=== PATIENT | female | born 1945 | race Caucasian/White ===

== ENCOUNTER 2022-04-20 12:08 | Outpatient (CLI) | payer MEDICARE, BC ==
[2022-04-20] VITALS (11 sets, daily range): BP systolic 97–206; BP diastolic 16–155
== END 2022-04-20 23:59 | disposition home or self-care (01) ==
LOC: CARD DIAG 12:08
PROVIDERS: ATTEND Internal Medicine Cardiovascular Disease
DX: R55 Syncope and collapse (principal)
CPT/HCPCS: 93660

== ENCOUNTER 2024-10-25 08:20 | Emergency (ER) | payer MEDICARE, BC ==
[~2024-10-25] VITALS: Ht 175.3 cm; Wt 52.6 kg
[~2024-10-25 08:20] MED LIST: AMLO5TAB16 PO; CELE-127 PO; FLEC100T PO; HYDR-3965 PO; LEVO175T2 PO; LORA-269 PO; TRAZ-256 PO
[2024-10-25 08:26] VITALS: TEMP 98.2
--- NOTE | 2024-10-25 08:41 | Physician Documentation ---
History of Present Illness ~ Chief Complaint: Rectal Bleeding Stated Complaint: GI BLEED Time Seen by MD: 08:25 HPI 79-year-old female who presents with reported rectal bleeding With the patient tells me that she had blood in her stool last week, was seen at [facility], had laboratory testing, imaging, and other treatments. She tells me they did not really do anything, there was not really a plan afterwards. Today, staff again noticed blood in her stool, and so they called 911. She came here to this hospital because the experience at [facility] was terrible. She tells me she did have a stomach ache earlier today, but currently denies any abdominal pain. No dizziness or new weakness. No vomiting blood. No rectal pain. No other acute concerns. She does have a colostomy, but states it is nonfunctional and she is waiting to get it reversed. Medication Reconciliation Allergies: Coded Allergies: Penicillins (Verified Allergy, Unknown, 04/09/14) HIVES Scheduled Amlodipine Besylate (Amlodipine Besylate), 1 TAB PO DAILY Celecoxib (Celecoxib), 1 CAP PO DAILY, (Reported) Flecainide Acetate (Flecainide Acetate), 1 TAB PO BID, (Reported) Levothyroxine* (Synthroid*), 1 TAB PO DAILY, (Reported) Lorazepam (Ativan), 1 TAB PO HS, (Reported) Trazodone HCl (Trazodone HCl), 1 TAB PO HS, (Reported) Scheduled PRN Hydrocodone Bit/Acetaminophen 5/325 MG ([place] 5/325 MG), 1 TAB PO Q8H PRN for moderate or severe pain, (Reported) Past Medical History Past Medical History: No Pertinent History Past Surgical History: orthopedic surgeries Patient History: FH: CVA (cerebrovascular accident) Maternal grandmother FH: heart disease Paternal grandfather FH: lung cancer MOTHER Alcohol Use: Occasionally Drug Use: none Lives with: Family Lives In: Home Occupation: retired Review of Systems Constitutional: Denies: fever Gastrointestinal: Reports: rectal bleeding; Denies: abdominal pain Physical Exam Vital Signs: Temperature: 98.2, Source: Oral, Heart Rate: 91, Respiratory Rate: 18, BP: 97/53, Pulse Oximetry: 95, Weight: 52.600 Physical Exam General: This is a pleasant elderly woman lying calmly in bed HEENT: Atraumatic, oropharynx appears moist Heart: Mild tachycardic, appears irregular, normal-appearing peripheral perfusion Lungs: Clear breath sounds bilateral, normal work of breathing, normal oxygen saturation on room air Abdomen: Soft, nondistended, nontender all quadrants, there is an ostomy bag in the left abdomen, with no stool in the bag Neuro: Alert and oriented Psychiatric: Calm and cooperative with exam Progress Results/Orders Results/Orders Orders - VANESSA TAYLOR MD Urinalysis, Cult If Indicated (10/25/24 08:33) Completed Orders - VANESSA TAYLOR MD Cbc/Diff (10/25/24 08:33) BMP (10/25/24 08:33) Lipase (10/25/24 08:33) CMP (10/25/24 08:33) Vital Signs 10/25/24 10/25/24 08:26 09:30 Temp 98.2 Pulse 91 87 Resp 18 17 B/P (MAP) 97/53 104/56 (72) Pulse Ox 95 93 Laboratory Tests Test 10/25/24 08:43 White Blood Count 18.2 H Red Blood Count 4.18 L Hemoglobin 11.6 L Hematocrit 35.8 Mean Corpuscular Volume 85.8 Mean Corpuscular Hemoglobin 27.9 Mean Corpuscular Hemoglobin Concent 32.5 L Red Cell Distribution Width 14.9 H Platelet Count 517 H Mean Platelet Volume 7.2 L Neutrophils (%) (Auto) 93.5 H Lymphocytes (%) (Auto) 2.3 L Monocytes (%) (Auto) 3.1 Eosinophils (%) (Auto) 1.0 Basophils (%) (Auto) 0.1 Neutrophils # (Auto) 17.0 H Lymphocytes # (Auto) 0.4 L Monocytes # (Auto) 0.6 Eosinophils # (Auto) 0.2 Basophils # (Auto) 0.0 CBC Comment Sodium Level 136 Potassium Level 4.9 Chloride Level 102 Carbon Dioxide Level 22.4 L Anion Gap 12 Blood Urea Nitrogen 37 H Creatinine 2.52 H Estimated GFR/1.73 m2 18 BUN/Creatinine Ratio 14.7 Glucose Level 106 H Calcium Level 8.6 Total Bilirubin 0.4 Aspartate Amino Transf (AST/SGOT) 11 Alanine Aminotransferase (ALT/SGPT) 14 Alkaline Phosphatase 184 H Total Protein 7.8 Albumin 2.7 L Globulin 5.1 H Albumin/Globulin Ratio 0.5 L Lipase 61 Chemistry Comments Medical Decision Making Additional info obtained from: old records Findings Outside records obtained from [facility]. The patient was recently admitted for blood in her stool. She had a complete workup including blood testing, a CT scan of her abdomen, GI consult, colonoscopy. This showed colitis, has a likely source of her bleeding. She was discharged with a plan to follow up in the surgery clinic for colostomy reversal. Diff Dx GI Bleed:Consideration: Include: Blood loss anemia, Diverticulosis, Gastritis, Inflammatory BD Assessment 79-year-old female who presents with reported rectal bleeding. She had similar last week and had a full workup at an outside hospital. She is otherwise asymptomatic including no abdominal pain or rectal pain. We will obtain basic labs and then wait for records from the outside hospital before proceeding with further workup, given her lack of other concerning symptoms. Records were obtained from the outside hospital, as above. Comparing her labs, they actually appear improved today, no worsening anemia or other dangerous findings. While here in the ED she is essentially asymptomatic. I do not feel that any further workup or testing is indicated. I explained that she may have some intermittent rectal bleeding related to her colitis. She was encouraged to follow up in the surgery clinic. She can return if she develops severe bleeding or signs of blood loss anemia. Departure Disposition: HOME / SELF CARE / HOMELESS Impression: Primary Impression: Rectal bleeding Condition: Stable Referrals: NO PRIMARY CARE PROVIDER (PCP) Education Educated: Patient Educated regarding: diagnosis, need for follow up Signature Scribe Signature: na Attestation: VANESSA Shaw MD Oct 25, 2024 08:41
[2024-10-25 08:51] LABS: BASOPHILS % (AUTO) 0.1 % (0-1); EOSINOPHILS # (AUTO) 0.2 X10'3 (0-0.9); HEMATOCRIT 35.8 % (35.0-45.0); HEMOGLOBIN 11.6 g/dl (12.0-16.0); LYMPHOCYTES # (AUTO) 0.4 X10'3 (1.1-4.8); LYMPHOCYTES % (AUTO) 2.3 % (21-51); MEAN CORPUSCULAR HEMOGLOBIN 27.9 PG (27.0-31.0); MEAN CORPUSCULAR HGB CONC 32.5 g/dL (33.0-36.5); MEAN CORPUSCULAR VOLUME 85.8 FL (78-98); MEAN PLATELET VOLUME 7.2 FL (7.4-10.4); MONOCYTES # (AUTO) 0.6 X10'3 (0-0.9); MONOCYTES % (AUTO) 3.1 % (2-12); NEUTROPHILS % (AUTO) 93.5 % (42-75); PLATELET COUNT 517 X10'3 (140-440); RED BLOOD COUNT 4.18 X10'6 (4.20-5.60); RED CELL DISTRIBUTION WIDTH 14.9 % (11.5-14.5); WHITE BLOOD COUNT 18.2 X10'3 (4.5-11.0)
[2024-10-25 09:05] LABS: ALANINE AMINOTRANSFERASE 14 U/L (12-78); ALBUMIN 2.7 G/DL (3.4-5.0); ALBUMIN/GLOBULIN RATIO 0.5 (1.1-1.5); ALKALINE PHOSPHATASE 184 IU/L (46-116); ANION GAP 12 (8-16); ASPARTATE AMINO TRANSFERASE 11 U/L (10-37); BILIRUBIN,TOTAL 0.4 MG/DL (0.1-1.0); BLOOD UREA NITROGEN 37 MG/DL (7-18); BUN/CREATININE RATIO 14.7 (10.0-20.0); CALCIUM 8.6 MG/DL (8.5-10.1); CHLORIDE 102 MMOL/L (99-107); CREATININE 2.52 MG/DL (0.40-0.90); GLUCOSE 106 MG/DL (70-104); LIPASE 61 U/L (16-77); POTASSIUM 4.9 MMOL/L (3.5-5.1); SODIUM 136 MMOL/L (135-145); TOTAL CARBON DIOXIDE 22.4 MMOL/L (24-32); TOTAL PROTEIN 7.8 G/DL (6.4-8.2); eCRCL 15 ML/MIN; eGFR 18 ML/MIN
[2024-10-25 12:35] VITALS: BP 101/65; PULSE 87; RESP 15; O2SAT 99
== END 2024-10-25 12:31 | disposition home or self-care (01) ==
LOC: ER 08:20
DX: K62.5 Hemorrhage of anus and rectum (principal); Z88.0 Allergy status to penicillin
CPT/HCPCS: 36415; 80053; 83690; 85025; 99284

== ENCOUNTER 2024-10-31 10:04 | Emergency (ER) | payer MEDICARE, BC ==
[~2024-10-31] VITALS: Ht 175.3 cm; Wt 116.0 kg
[2024-10-31 10:06] VITALS: TEMP 97.9
[2024-10-31 11:10] LABS: BASOPHILS % (AUTO) 0.7 % (0-1); EOSINOPHILS # (AUTO) 0.3 X10'3 (0-0.9); EOSINOPHILS % (AUTO) 5.3 % (0-6); HEMATOCRIT 32.8 % (35.0-45.0); HEMOGLOBIN 10.9 g/dl (12.0-16.0); LYMPHOCYTES # (AUTO) 0.6 X10'3 (1.1-4.8); LYMPHOCYTES % (AUTO) 10.7 % (21-51); MEAN CORPUSCULAR HEMOGLOBIN 28.3 PG (27.0-31.0); MEAN CORPUSCULAR HGB CONC 33.2 g/dL (33.0-36.5); MEAN CORPUSCULAR VOLUME 85.3 FL (78-98); MONOCYTES # (AUTO) 0.3 X10'3 (0-0.9); MONOCYTES % (AUTO) 5.9 % (2-12); NEUTROPHILS # (AUTO) 4.5 X10'3 (1.8-7.7); NEUTROPHILS % (AUTO) 77.4 % (42-75); PLATELET COUNT 543 X10'3 (140-440); RED BLOOD COUNT 3.85 X10'6 (4.20-5.60); RED CELL DISTRIBUTION WIDTH 14.5 % (11.5-14.5); WHITE BLOOD COUNT 5.8 X10'3 (4.5-11.0)
--- NOTE | 2024-10-31 11:14 | RADIOLOGY REPORT ---
Date: 10/31/2024 10:50 AM Examination: DI ABDOMEN,SINGLE VIEW(KUB) History: Constipation Comparison: None TECHNIQUE: Frontal views of the abdomen was obtained. FINDINGS: Bowel gas pattern is unremarkable. Large stool burden. The lung bases are unremarkable. No acute osseous abnormality identified. IMPRESSION: Nonobstructive bowel gas pattern. Large stool burden.
--- NOTE | 2024-10-31 11:16 | Physician Documentation ---
History of Present Illness ~ Chief Complaint: Constipation Stated Complaint: CONSTIPATION Time Seen by MD: 10:23 Mode of Arrival: Ambulatory [facility] 79-year-old female patient who is ambulatory with a history of diversion colostomy done two years ago for decubitus ulcer and history of knee surgeries came to the emergency room because of constipation for about 12 days. She has slight nausea but no vomiting. Her appetite is low but she is eating as usual. At the [facility] they have tried MiraLax. Patient does not endorse abdominal pain, chest pain, fever or chills and shortness of breath. Medication Reconciliation Allergies: Coded Allergies: Penicillins (Verified Allergy, Unknown, 04/09/14) HIVES Scheduled Amlodipine Besylate (Amlodipine Besylate), 1 TAB PO DAILY Celecoxib (Celecoxib), 1 CAP PO DAILY, (Reported) Flecainide Acetate (Flecainide Acetate), 1 TAB PO BID, (Reported) Levothyroxine* (Synthroid*), 1 TAB PO DAILY, (Reported) Lorazepam (Ativan), 1 TAB PO HS, (Reported) Trazodone HCl (Trazodone HCl), 1 TAB PO HS, (Reported) Scheduled PRN Hydrocodone Bit/Acetaminophen 5/325 MG ([place] 5/325 MG), 1 TAB PO Q8H PRN for moderate or severe pain, (Reported) Past Medical History Past Medical History: No Pertinent History Past Surgical History: orthopedic surgeries Patient History: FH: CVA (cerebrovascular accident) Maternal grandmother FH: heart disease Paternal grandfather FH: lung cancer MOTHER Alcohol Use: Occasionally Drug Use: none Lives with: Family Lives In: Home Occupation: retired Review of Systems ROS As stated above in the HPI, otherwise all systems are reviewed and negative. Physical Exam Vital Signs: Temperature: 97.9, Source: Temporal, Heart Rate: 76, Respiratory Rate: 16, BP: 131/84, Pulse Oximetry: 97, Weight: 116.000 Oxygen Flow Rate: 0 Progress Results/Orders Results/Orders Orders - JAUN DOSHI MD Abdomen,Single View(Kub) (10/31/24 10:23) Completed Orders - JAUN DOSHI MD Cbc/Diff (10/31/24 10:23) BMP (10/31/24 10:23) TSH (10/31/24 10:23) Abdomen,Single View(Kub) (10/31/24 10:23) Vital Signs 10/31/24 10/31/24 10/31/24 10/31/24 10:06 10:15 10:22 12:59 Temp 97.9 Pulse 98 76 78 Resp 18 16 16 B/P (MAP) 100/49 131/84 (100) 104/59 Pulse Ox 95 97 98 O2 Flow Rate 0 Laboratory Tests Test 10/31/24 10:45 White Blood Count 5.8 Red Blood Count 3.85 L Hemoglobin 10.9 L Hematocrit 32.8 L Mean Corpuscular Volume 85.3 Mean Corpuscular Hemoglobin 28.3 Mean Corpuscular Hemoglobin Concent 33.2 Red Cell Distribution Width 14.5 Platelet Count 543 H Mean Platelet Volume 7.0 L Neutrophils (%) (Auto) 77.4 H Lymphocytes (%) (Auto) 10.7 L Monocytes (%) (Auto) 5.9 Eosinophils (%) (Auto) 5.3 Basophils (%) (Auto) 0.7 Neutrophils # (Auto) 4.5 Lymphocytes # (Auto) 0.6 L Monocytes # (Auto) 0.3 Eosinophils # (Auto) 0.3 Basophils # (Auto) 0.0 CBC Comment Sodium Level 132 L Potassium Level 4.4 Chloride Level 101 Carbon Dioxide Level 23.4 L Anion Gap 8 Blood Urea Nitrogen 34 H Creatinine 2.26 H Estimated GFR/1.73 m2 21 BUN/Creatinine Ratio 15.0 Glucose Level 80 Calcium Level 8.7 Albumin 2.6 L Thyroid Stimulating Hormone (TSH) 4.92 H Chemistry Comments Medical Decision Making Findings During the physical examination, the findings suggestive of acute life- threatening condition such as JVD, tracheal deviation, acidotic breathing, noisy stridorous breath sounds, pulses paradoxus, muffled heart sounds, unequal breath sounds, abdominal rigidity and rebound tenderness, focal neurological deficits, cool clammy skin, severe hypotension, severe tachycardia or bradycardia are absent. Patient is not in any acute cardiopulmonary distress. Her abdominal x-ray shows no signs of obstruction but considerable amount of stool load. CBC is within normal range as well as BMP (normal electrolytes and no hypokalemia) and her TSH is not low (4.92) I did look at the colostomy site and I could put two fingers into the orifice and there is not much stool there. I really do not know whether it is the mechanics of colostomy site causing constipation or not. I consulted Dr. Patterson and understandably it is not acute condition and it is elective surgery and Dr. Patterson will see the patient in the office so that he may be able to expedite the plan surgery to be done in December to now rather than in December. In the meantime the patient is to consume liquids base diet such as ensure and boost. DISCLAIMER Inadvertent spelling and grammatical errors,inadvertent forms examiner errors ,syntax errors, grammatical errors, and spelling errors are likely due to EMR/dictation software use and do not reflect on the overall quality of patient care. Note that the electronic time recorded on this note does not necessarily reflect the actual time of the patient encounter. Departure Disposition: 01 HOME / SELF CARE / HOMELESS Impression: Primary Impression: Constipation Condition: Stable Discharge Instructions: Constipation, Adult Additional Instructions: Thank you for coming to our Emergency Department today. While waiting for the colostomy reversal please stay on liquid based diet such as ensure plus and boost. Please ask your nurse or provider if you have questions about your care today and do not leave until all your questions have been answered. Please use any medications given as directed and follow-up with your doctor (or the doctor you were referred to) in the next 1-3 days. Your primary care doctor can help to coordinate outpatient specialty care and provide authorization for specialty referral as needed. If you do not have a primary care doctor you may follow up at a [facility]. You may also use motrin and tylenol as needed for fever and/or pain unless instructed otherwise by your provider or nurse. Indications for more urgent follow-up have been discussed, but you may return to the Emergency Department at ANY time for any worrisome or worsening symptoms. Referrals: NO PRIMARY CARE PROVIDER (PCP) ANNE PATTERSON MD Signature Scribe Signature: x Attestation: JANU Flowers MD Oct 31, 2024 11:16
[2024-10-31 11:29] LABS: ALBUMIN 2.6 G/DL (3.4-5.0); ANION GAP 8 (8-16); BLOOD UREA NITROGEN 34 MG/DL (7-18); CALCIUM 8.7 MG/DL (8.5-10.1); CHLORIDE 101 MMOL/L (99-107); CREATININE 2.26 MG/DL (0.40-0.90); GLUCOSE 80 MG/DL (70-104); POTASSIUM 4.4 MMOL/L (3.5-5.1); SODIUM 132 MMOL/L (135-145); THYROID STIMULATING HORMONE 4.92 ulU/ml (0.34-4.50); TOTAL CARBON DIOXIDE 23.4 MMOL/L (24-32); eCRCL 20 ML/MIN; eGFR 21 ML/MIN
[2024-10-31 12:59] VITALS: BP 104/59; PULSE 78; RESP 16; O2SAT 98
== END 2024-10-31 13:10 | disposition home or self-care (01) ==
LOC: ER 10:04
DX: K59.00 Constipation, unspecified (principal); Z88.0 Allergy status to penicillin
CPT/HCPCS: 36415; 74018; 80048; 84443; 85025; 99284; A4421

== ENCOUNTER 2024-11-02 22:33 | Emergency (ER) | payer MEDICARE, BC ==
[~2024-11-02] VITALS: Ht 175.3 cm; Wt 52.7 kg
--- NOTE | 2024-11-02 22:55 | Physician Documentation ---
History of Present Illness ~ Chief Complaint: Mechanical Fall Stated Complaint: RIGHT KNEE PAIN Time Seen by MD: 22:40 OK to notify your PCP?: Yes Source: patient, RN/MD, EMS, RN notes reviewed, EMS notes reviewed Mode of Arrival: EMS Exam Limitations: no limitations HPI 79 year old female with a history of a broken kneecap seen in bed 15 presents to the emergency department via EMS presents to the emergency room due to a fall that happened tonight. EMS states that she had a ground level fall. The patient denies any head strike or loss of consciousness and no blood thinners. When asked, she states that she is having pain in her right knee that is associated with movement. Of note, patient states that she has been hospitalized three times in the past three weeks. Patient denies any other associated symptoms at this time. Patient denies any other alleviating or exacerbating factors. Tetanus within 5 Years?: No Medication Reconciliation Allergies: Coded Allergies: Penicillins (Verified Allergy, Mild, 11/02/24) HIVES Scheduled Amlodipine Besylate (Amlodipine Besylate), 1 TAB PO DAILY Celecoxib (Celecoxib), 1 CAP PO DAILY, (Reported) Flecainide Acetate (Flecainide Acetate), 1 TAB PO BID, (Reported) Levothyroxine* (Synthroid*), 1 TAB PO DAILY, (Reported) Lorazepam (Ativan), 1 TAB PO HS, (Reported) Trazodone HCl (Trazodone HCl), 1 TAB PO HS, (Reported) Scheduled PRN Hydrocodone Bit/Acetaminophen 5/325 MG ([place] 5/325 MG), 1 TAB PO Q8H PRN for moderate or severe pain, (Reported) Past Medical History Past Medical History: No Pertinent History Past Surgical History: orthopedic surgeries Patient History: FH: CVA (cerebrovascular accident) Maternal grandmother FH: heart disease Paternal grandfather FH: lung cancer MOTHER Alcohol Use: Occasionally Drug Use: none Lives with: Family Lives In: Home Occupation: retired Review of Systems All Other Systems at this time: Reviewed and Negative Physical Exam Vital Signs: RN Vital Signs have been reviewed: Yes, Temperature: 98.1, Source: Oral, Heart Rate: 70, Respiratory Rate: 16, BP: 108/70, Pulse Oximetry: 99, Weight: 52.730 Pulse Oximetry Reflects: adequate oxygenation Physical Exam General: The patient is well developed, well nourished, nontoxic appearing and is in no acute distress. Skin: [place], warm and dry with no rashes. HEENT: Head was normocephalic and atraumatic. Eyes - pupils equal, round, reactive to light and accommodation. Extraocular movements were intact. Conjunctivae were nonicteric. Ears - bilateral tympanic membranes were normal. The mouth and oropharynx were clear with moist mucous membranes. There were no pharyngeal exudates or erythema. Neck: Supple and nontender. There was no jugular venous distention, l ymphadenopathy, thyromegaly or masses. Chest: Clear to auscultation bilaterally without wheezes, rales or rhonchi. No accessory muscle use. No dullness to percussion. Heart: Rate regular and rhythmic. S1, S2. No murmurs. Palpation of the chest wall was normal. No rubs or thrills. Abdomen: Soft, nontender and nondistended. Positive bowel sounds. No guarding or rebound. No hepatosplenomegaly or palpable masses. Extremities: Right knee is swelling tender, with a decreased range of motion. The patient moves all extremities. Pulses were equal and symmetric. Neurologic: Cranial nerves II-XII were intact. Sensation was intact to light touch throughout. Motor strength was 5/5 in all four extremities. Deep tendon reflexes were intact in both upper and lower extremities. Psychologic: The patient was oriented to person, place and time. The patient demonstrated appropriate judgement and insight. Progress Results/Orders Results/Orders Medications Received in ER Medications (Trade) Dose Ordered Sig/Mihai Route PRN Reason Start Time Stop Time Status Last Admin Dose Admin (sodium chloride 1000ml IV soln) 500 ml ONCE ONCE IVB 11/03/24 00:10 11/03/24 00:11 DC 11/03/24 00:14 500 ML Sodium Chloride 1,000 ml @ 200 mls/hr Q5H ONCE IV 11/03/24 00:10 11/03/24 05:09 DC 11/03/24 00:14 200 MLS/HR Vital Signs 11/02/24 11/02/24 11/02/24 11/03/24 22:38 23:59 23:59 00:33 Temp 98.1 Pulse 70 72 68 Resp 16 16 16 16 B/P (MAP) 108/70 86/46 (59) 103/58 (73) Pulse Ox 99 99 98 11/03/24 11/03/24 02:49 05:41 Pulse 64 73 Resp 15 20 B/P (MAP) 97/56 (70) 116/62 (80) Pulse Ox 98 99 Laboratory Tests Test 11/02/24 23:02 White Blood Count 8.7 Red Blood Count 3.64 L Hemoglobin 10.2 L Hematocrit 31.0 L Mean Corpuscular Volume 85.2 Mean Corpuscular Hemoglobin 28.0 Mean Corpuscular Hemoglobin Concent 32.8 L Red Cell Distribution Width 14.6 H Platelet Count 565 H Mean Platelet Volume 7.2 L Neutrophils (%) (Auto) 78.7 H Lymphocytes (%) (Auto) 7.7 L Monocytes (%) (Auto) 6.3 Eosinophils (%) (Auto) 6.8 H Basophils (%) (Auto) 0.5 Neutrophils # (Auto) 6.8 Lymphocytes # (Auto) 0.7 L Monocytes # (Auto) 0.5 Eosinophils # (Auto) 0.6 Basophils # (Auto) 0.0 CBC Comment Sodium Level 127 L Potassium Level 4.5 Chloride Level 95 L Carbon Dioxide Level 23.9 L Anion Gap 8 Blood Urea Nitrogen 47 H Creatinine 2.57 H Estimated GFR/1.73 m2 18 BUN/Creatinine Ratio 18.3 Glucose Level 130 H Calcium Level 8.6 Albumin 2.7 L Chemistry Comments EKG/XRAY/CT/US/VASC/MRI Bone/Soft Tissue X-Ray (Ext.) : Additional Comment CLINICAL INDICATION: KNEE PAIN TECHNIQUE: 3 radiographic views of the right knee were obtained. Comparison: None FINDINGS/IMPRESSION: There is no evidence of acute fracture or dislocation. Moderate to severe trico mpartmental degenerative changes of the knee. Postsurgical changes of the patella. Trace suprapatellar effusion. Electronically Signed by:JANINE SEARS DO Date & Time: 11/02/[address] : Impression CT RIGHT KNEE HISTORY: knee pain COMPARISON: Right knee radiographs 11/02/2024. TECHNIQUE: Multiple axial CT images of the right knee were obtained without intra-articular contrast. Coronal and sagittal bone and soft tissue reformations were also obtained. One or more of the following radiation dose reduction techniques were used for this examination: automated exposure control, adjustment of the mA and/or kV according to patient size, use of iterative nelson nstruction technique. Findings and impression: Postsurgical changes of the patella with cerclage fixation. Streak artifact from the orthopedic hardware limits evaluation. As visualized, no grossly displaced fractures or dislocations are evident. Small suprapatellar joint effusion is noted. Serpiginous density in the proximal tibial medullary cavity may be sequelae of bony infarct. Moderately advanced tricompartmental arthritic changes. There is periarticular osteopenia which may be in part secondary to disuse. Arterial vascular calcifications noted. HS:Y Electronically Signed by:WALDEMAR PHELPS MD Date & Time: 11/03/24113 Departure Time of Disposition: 05:56 Disposition: 01 HOME / SELF CARE / HOMELESS Impression: Primary Impression: Chronic renal insufficiency Additional Impression: Right knee pain Condition: Stable Discharge Instructions: Acute Knee Pain, Adult, [id number] Additional Instructions: Patient is instructed to use Tylenol and Motrin for pain Referrals: NO PRIMARY CARE PROVIDER (PCP) Signature Scribe Signature: Scribed for Lizandro Edward MD by Ab Syed . 11/02/24 23:02 Attestation: The note accurately reflects work and decisions made by me.Lizanrdo Edward MD 11/02/24 22:55 LIZANDRO EDWARD MD Nov 02, 2024 22:55 AB SEPULVEDA Nov 02, 2024 23:02
[2024-11-02 23:18] LABS: ALBUMIN 2.7 G/DL (3.4-5.0); ANION GAP 8 (8-16); BLOOD UREA NITROGEN 47 MG/DL (7-18); BUN/CREATININE RATIO 18.3 (10.0-20.0); CALCIUM 8.6 MG/DL (8.5-10.1); CHLORIDE 95 MMOL/L (99-107); CREATININE 2.57 MG/DL (0.40-0.90); GLUCOSE 130 MG/DL (70-104); POTASSIUM 4.5 MMOL/L (3.5-5.1); SODIUM 127 MMOL/L (135-145); TOTAL CARBON DIOXIDE 23.9 MMOL/L (24-32); eCRCL 14 ML/MIN; eGFR 18 ML/MIN
[2024-11-02 23:19] LABS: EOSINOPHILS # (AUTO) 0.6 X10'3 (0-0.9); HEMOGLOBIN 10.2 g/dl (12.0-16.0); LYMPHOCYTES # (AUTO) 0.7 X10'3 (1.1-4.8); MONOCYTES # (AUTO) 0.5 X10'3 (0-0.9)
[2024-11-02 23:21] LABS: BASOPHILS % (AUTO) 0.5 % (0-1); EOSINOPHILS % (AUTO) 6.8 % (0-6); LYMPHOCYTES % (AUTO) 7.7 % (21-51); MEAN CORPUSCULAR HGB CONC 32.8 g/dL (33.0-36.5); MEAN CORPUSCULAR VOLUME 85.2 FL (78-98); MEAN PLATELET VOLUME 7.2 FL (7.4-10.4); MONOCYTES % (AUTO) 6.3 % (2-12); NEUTROPHILS # (AUTO) 6.8 X10'3 (1.8-7.7); NEUTROPHILS % (AUTO) 78.7 % (42-75); PLATELET COUNT 565 X10'3 (140-440); RED BLOOD COUNT 3.64 X10'6 (4.20-5.60); RED CELL DISTRIBUTION WIDTH 14.6 % (11.5-14.5); WHITE BLOOD COUNT 8.7 X10'3 (4.5-11.0)
--- NOTE | 2024-11-02 23:51 | RADIOLOGY REPORT ---
CLINICAL INDICATION: KNEE PAIN TECHNIQUE: 3 radiographic views of the right knee were obtained. Comparison: None FINDINGS/IMPRESSION: There is no evidence of acute fracture or dislocation. Moderate to severe tricompartmental degenerati ve changes of the knee. Postsurgical changes of the patella. Trace suprapatellar effusion.
[2024-11-03] MEDS: normal saline 1000ML IV soln IVB ONE (00:14)
[2024-11-03] MEDS: normal saline 1000ml 1,000 ML IV ONE (00:14)
--- NOTE | 2024-11-03 01:17 | RADIOLOGY REPORT ---
CT RIGHT KNEE HISTORY: knee pain COMPARISON: Right knee radiographs 11/02/2024. TECHNIQUE: Multiple axial CT images of the right knee were obtained without intra-articular contrast. Coronal and sagittal bone and soft tissue reformations were also obtained. One or more of the [facility] radiation dose reduction techniques were used for this examination: automated exposure control, adjustment of the mA and/or kV according to patient size, use of iterative reconstruction technique. Findings and impression: Postsurgical changes of the patella with cerclage fixation. Streak artifact from the orthopedic hardw are limits evaluation. As visualized, no grossly displaced fractures or dislocations are evident. Small suprapatellar joint effusion is noted. Serpiginous density in the proximal tibial medullary cavity may be sequelae of bony infarct. Moderately advanced tricompartmental arthritic changes. There is periarticular osteopenia which may b e in part secondary to disuse. Arterial vascular calcifications noted. HS:Y
[2024-11-03 06:24] VITALS: BP 124/80; PULSE 80; RESP 16; TEMP 98.3; O2SAT 99
== END 2024-11-03 06:27 | disposition home or self-care (01) ==
LOC: ER 22:33
DX: M25.561 Pain in right knee (principal); N18.9 Chronic kidney disease, unspecified; Z88.0 Allergy status to penicillin; W18.30XA Fall on same level, unspecified, initial encounter; Y93.89 Activity, other specified; Y92.89 Other specified places as the place of occurrence of the external cause; Y99.8 Other external cause status
CPT/HCPCS: 73564; 73700; 80048; 85025; 96360; 96361; 99285; A6449; J7030